=== PATIENT | female | born 1935 | race Caucasian/White ===

== ENCOUNTER 2021-07-24 19:23 | Inpatient (IN) | payer MEDICARE ==
[~2021-07-24] VITALS: Ht 152.4 cm; Wt 92.7 kg
--- NOTE | ~2021-07-24 | EMS ---
[address] [address] EMS Patient Care Report Name: MARIA D JONES Room #: 170-12 ADM IN M.R.#: [id number] Admission: 07/24/21 Attend Phys: Anuj Babb MD Discharge: Date of : 37 Report #: [id number] THIS REPORT FOR: //name// Report Transmitted: 07/25/2021 11:09 EMS Care Summary [place], [place]/[facility] Incident [id number] @ 07/24/2021 18:43 Incident Location [id number] [place], [place] [id number] Patient MARIA D JONES Female, 86 Years 1935 Patient Address [address] [place], [place] [id number] Patient History Diabetes,Fibromyalgia,Gastro-Esophageal Reflux Disease (GERD),Irritable Bowel Syndrome,Diverticulitis,Chronic Kidney Disease,Cardiomyopathy, Patient Allergies Penicillin allergy, Patient Medications Levothyroxine, Potassium, Aspirin, Docusate Sodium, Loratadine, Loperamide, Calcitriol, Paroxetine, Novolog, Rosuvastatin, Sulfamethoxazole, Omeprazole, Acyclovir, Ondansetron, Chief Complaint lower ext pain Disposition Transported No Lights/[place] Dispatch Reason Traumatic Injury Transported To [facility] Narrative pt fell a week ago and was eval at [facility]. she does not feel she got an adequate [address] [address] EMS Patient Care Report Name: MARIA D JONES Room #: 170- ADM IN [facility]#: [id number] Admission: 07/24/21 Attend Phys: Anuj Babb MD Discharge: Date of : 37 Report #: [id number] evaluation and now req eval at [facility]. pt states hip and lower ext pain is getting worse since fall. pt is found a&o, seated in recliner chair. she offers minimal assist in a stand and pivot transfer, due to pain. pt to cot, transport w/o incident. report to staff on arrival, rm 12 Initial Vitals @19:08P: 87,R: 20,BP: 116/64,Pain: 8/10,GCS: 15,SpO2: 98,Revised Trauma: 12, Assessments @18:57MENTAL:No Abnormalities,SKIN:No Abnormalities,HEENT:Head/Face: No Abnormalities,LUNG SOUNDS:General: No Abnormalities,ABDOMEN:General: No Abnormalities,PELVIS//GI:Pelvis Other,EXTREMITIES:Right Leg: Other,Left Leg: Other,PULSE:NEURO: Impression Extremity Pain Procedures @18:57 ALS Assessment Response: Unchanged @19:01 Stretcher Response: Unchanged Timeline 18:40,Call Received 18:40,Dispatch Notified 18:43,Dispatched 18:43,En Route 18:55,On Scene 18:57,At Patient 18:57,ALS Assessment,Response: Unchanged 19:01,Stretcher,Response: Unchanged 19:06,Depart Scene 19:08,BP: 116/64 M,PULSE: 87,RR: 20 R,SPO2: 98 Ox,ETCO2: ,BG: ,PAIN: 8,GCS: 15, 19:20,At Destination 19:33,Call Closed Disclaimer v1.1 Copyright 2020 [employer] This EMS Care Summary contains data elements from the applicable legal record (which may be displayed differently). It is designed to provide pertinent information for the following purposes: continuity of care, clinical quality, and state data reporting. The complete legal record is available to ED staff and administrators of the receiving hospital in [employer]s Patient Tracker. All data is provided "as is."
[2021-07-24 19:25] VITALS: BP 130/62
[2021-07-24 20:15] LABS: ABSOLUTE NEUTROPHILS 2.7 thou/uL (1.4-8.2); BASOPHILS 0.6 % (0.0-2.0); EOSINOPHILS 2.1 % (0.0-3.0); HEMATOCRIT 34.7 % (37.0-47.0); LYMPHOCYTES 17.7 % (24.0-44.0); MCH 35.8 pg (26.0-34.0); MCHC 34.4 g/dL (28.0-37.0); MCV 104.1 fL (80.0-100.0); MONOCYTES 11.3 % (1.0-8.0); PLATELET COUNT 138 thou/uL (150-400); POLYS 68.3 % (36.0-66.0); RBC 3.34 mil/uL (4.20-5.00); RDW 14.6 % (10.5-14.5); WBC 3.9 thou/uL (4.0-11.0)
[2021-07-24 20:21] LABS: CALCIUM 8.9 mg/dL (8.5-10.1); CREATININE 1.9 mg/dL (0.6-1.0); POTASSIUM 3.6 mmol/L (3.5-5.1)
--- NOTE | 2021-07-24 21:40 | NUR ---
GEL SPLINT, ISABELLE WRAP APPLIED TO LEFT ANKLE. X 2 MAX ASSIST TO SIT ON SIDE OF BED. WALKER IN USE FOR STABILITY. UNABLE TO STAND UP. MINIMAL ABILITY TO PUT WEIGHT ON LEFT LEG. MINIMAL. ABLE TO PUT WEIGHT ON RIGHT LEG BUT UNABLE TO MOVE RIGHT LEG FORWARD - STAFF PROVIDING TOTAL ASSIST TO MAINTAIN SAFETY AND MOBILITY. I NOTIFIED PROVIDER OF ABOVE.
[2021-07-24] MEDS ORDERED: NORCO5 PO (21:50)
[2021-07-24] MEDS ORDERED: NAPROSYN500 MG PO (21:50)
--- NOTE | 2021-07-24 22:00 | NUR ---
PATIENT SPOKE TO HER FAMILY VIA HER PERSONAL CELLPHONE AND UPDATED THEM OF HER CURRENT CONDITION.
[2021-07-25] MEDS ORDERED: SULFAMETHOXAZO1 EACH PO (05:49)
[2021-07-25] MEDS ORDERED: ROSUVASTATIN CA10 MG PO (05:49)
[2021-07-25] MEDS ORDERED: TRIAMTERENE-HC1 EAC2 PO (05:49)
[2021-07-25] MEDS ORDERED: ACETAMINOPHEN325 MG PO (05:50)
[2021-07-25] MEDS ORDERED: CHOLESTYRAMINE P4 GM PO (05:51)
[2021-07-25] MEDS ORDERED: DULCOLAX STOOL100 M1 PO (05:51)
[2021-07-25] MEDS ORDERED: UNISOM25 MG PO (05:51)
[2021-07-25] MEDS ORDERED: ONE-A-DAY WOMENS PO (06:37)
[2021-07-25] MEDS ORDERED: PAROXETINE HCL10 MG PO (06:38)
[2021-07-25] MEDS ORDERED: POTASSIUM CHLO10 ME1 PO (06:38)
[2021-07-25] MEDS ORDERED: PRIMIDONE50 MG PO (06:38)
[2021-07-25] MEDS ORDERED: REFRESH CLASSI1 EACH OPHTHALMIC (06:39)
[2021-07-25] MEDS ORDERED: REGULOID0.4 GM PO (06:40)
[2021-07-25] MEDS ORDERED: REVLIMID5 MG PO (06:40)
[2021-07-25] MEDS ORDERED: OMEPRAZOLE 20 M20 M1 PO (06:41)
[2021-07-25] MEDS ORDERED: NOVOLOG100 UNIT/1 SUBQ (06:42)
[2021-07-25] MEDS ORDERED: MAPAP500 MG PO (06:42)
[2021-07-25] MEDS ORDERED: LORATIDINE 10 M10 M1 PO (06:42)
[2021-07-25] MEDS ORDERED: FISH OIL 1,0001 EAC9 PO (06:43)
[2021-07-25] MEDS ORDERED: LEVOTHYROXINE88 MC1 PO (06:43)
[2021-07-25] MEDS ORDERED: CHILDREN'S ASPI81 M1 PO (06:44)
[2021-07-25] MEDS ORDERED: ACYCLOVIR 400400 MG PO (06:44)
[2021-07-25] MEDS ORDERED: BASAGLAR K100 UNIT/1 SUBQ (06:45)
[2021-07-25] MEDS ORDERED: CALCIUM 1,0001 EACH PO (06:46)
[2021-07-25] MEDS ORDERED: CALCITRIOL0.25 MCG PO (06:46)
--- NOTE | 2021-07-25 12:35 | NUR ---
ORTHO-DR PETERSON CALLED STATING PT SHOULD BE PLACED ON A WALKING BOOT TO L LEG FOR SPRAIN AND SHOULD F/U OP AT HIS CLINIC ([phone] CYNDI MARSHALL, STATES HE WILL ORDER PT EVAL FOR WALKING BOOT PLACEMENT.
[2021-07-25 17:54] VITALS: BP 102/74; BP 121/43
[2021-07-25 19:43] VITALS: BP 114/65
[2021-07-26 01:06] LABS: GLYCOHEMOGLOBIN (HGB A1C) 6.7 % (4.8-5.6)
--- NOTE | 2021-07-26 06:24 | NUR ---
PT ARRIVED ON THE UNIT IN A STABLE CONDITION AT 1800. PT WAS ORIENTED TO THE ROOM. PT HAS A SPRINT ON LEFT ANKLE. VS ARE WITHIN NORMAL RANGE. PAIN WAS MANAGED SCHEDULED PAIN MEDS. PT USES BEDPAN. PT IS ON RA. ADMISSION COMPLETED. PT IS ON RA. NO VISIBLE SIGN OF DISTRESS NOTED. WILL CONTINUE TO MONITOR.
[2021-07-26 07:54] VITALS: BP 131/62
--- NOTE | 2021-07-26 16:00 | NUR ---
PT ADMITTED RELATED TO RIGHT LEG WEAKNESS AND ANKLE STRAIN. CM REVIEWED CHART AND SPOKE WITH CARE TEAM. CM MET WITH PT AT BEDSIDE THIS DAY. PT APPEARED TO BE A&o X4. CM ROLE INTRODUCED. PT INDICATED SHE RESIDED AT [facility]. 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 PATIENT ALSO REPORTS NEEDING ASSIST WITH CARES SUCH BATHING AND BATHROOM NEEDS FOR ABOUT A WEEK. PATIENT HAS BEEN SEEN BY ORTHO. THEY ARE INDICATING SHE IS WBAT RIGHT LOWER EXT. IN BOOT. BOOT DELIVERED TO UNIT. PT SEEN BY THERAPY. THEY ARE INDICATING SHE WILL BENEFIT FROM POST ACUTE CARE STAY. CM PROVIDED PT WITH AET SNF LIST FOR REVIEW. PT REPORTS SHE WANTS HER DAUGHTER TO MAKE THE DECISION ON WHERE TO GO FOR SNF SERVICES. CM TO REACH OUT TO DAUGHTER MARCELINO. SM FOLLOWING REGARING DC PLANNING.
[2021-07-26 16:41] VITALS: BP 136/69
[2021-07-26 19:51] VITALS: BP 122/60
--- NOTE | 2021-07-27 03:42 | NUR ---
ASSUMED PT CARE THIS PM. PT IS ALERT AND ORIENTED X4. PT HAS A PORT TO THE RIGHT CHEST WHICH HAS NOT BEEN ACCESSED. PT HAS EXTERNAL FEMALE CATH IN PLACE. MEDS WERE GIVEN PER EMAR ORDERS. PT IS ON RA. NO VISIBLE SIGN OF DISTRESS WAS NOTED. FALL PRECAUTIONS IN PLACE. WILL CONTINUE TO MONITOR.
[2021-07-27 07:00] VITALS: BP 113/54
--- NOTE | 2021-07-27 16:26 | NUR ---
PT ACCEPTED FOR ADMISSION AT [facility] FOR SHORT TERM SKILLED REHAB. THEY HAVE SUBMITTED FOR INSURANCE AUTH. SHOULD AUTH BE RECEIVED OVER WEEKEND CALL ANGELICA IN ADMISSIONS AT TO FACILITATE DISCHARGE. PT AND KEITH TORRES.
[2021-07-27 19:42] VITALS: BP 129/89
--- NOTE | 2021-07-28 04:17 | NUR ---
assumed care approx 1900 evening 07/27. pt lying in bed with head of bed elevated at change of shift. pt c/o pain to back and generalized pain. po [place] given as ordered. purwick catheter in place draining dark yellow urine to canister. pt appears to be sleeping soundly off and on. bed alarm on and call light in reach. will continue to monitor.
[2021-07-28 07:38] VITALS: BP 127/72
[2021-07-28 07:53] LABS: FOLIC ACID 28.3 ng/mL (8.6-58.9)
--- NOTE | 2021-07-28 18:07 | NUR ---
Pt A & O x4 with forgettfulness note. Pt VS stable. Pt has boot to left foot noted. Pt is x 2 assist with ADLs and cares. Pt received medications as ordered. pt is room air. Pt is able to make needs known.
[2021-07-28 19:38] VITALS: BP 138/73
--- NOTE | 2021-07-29 03:54 | NUR ---
PT IS A/O X4 AND IS UP WITH ASSISTANCE X2. ROOM AIR. VSS. AFEBRILE. C/O PAIN. PRN PAIN MEDICATION GIVEN DIRECTED. FALL PRECAUTIONS IN PLACE, CALL LIGHT IS WITHIN REACH.
[2021-07-29 07:34] VITALS: BP 125/60
--- NOTE | 2021-07-29 09:55 | NUR ---
ASSUMED PT CARE THIS AM. PT HAS IV SITE ON RFA SALINE LOCKED. PT IS ACCUCHECK ACHS BUT GIVEN INSULION ONLY IF BG >200. PT HAS LIDOCAINE PATCH ON R HIP. PT IS ON ROOM AIR. CALLED CONSULT THIS AM. PT HAS CAM BOOTS ON L FOOT. PT HAS PUREWICK EXTERNAL CATH IN PLACE. PT ON THE BED, BED ON THE LOWESY POSITION, SIDE RAILS UP, CALL LIGHT WITHIN REACH. WILL CONTINUE TO MONITOR PT. FOLLOW POC.
[2021-07-29 17:16] VITALS: BP 140/81
[2021-07-29 20:23] VITALS: BP 129/69
--- NOTE | 2021-07-30 03:13 | NUR ---
ASSUMED CARE AT 1900, PT LAYING COMFORTALY IN BED, EPISODES OF CONFUSION NOTED, REPORTS NO NEED AT THIS TIME, APPEARS COMFORTABLE, CALL LIGHT, PERSONAL BELONGINGS WITHIN REACH, COMPLIANT TO TX, NO ADVERSE REACTION NOTED, POSSIBLE DC TO IGNITE, SLEPT THROUGH THE NIGHT, WILL CONTINUE TO MONITOR.
[2021-07-30 07:41] VITALS: BP 136/69
[2021-07-30 12:47] LABS: HEMATOCRIT 33.3 % (37.0-47.0); HEMOGLOBIN 11.2 gm/dL (12.0-15.0); MCH 34.9 pg (26.0-34.0); MCHC 33.8 g/dL (28.0-37.0); MCV 103.4 fL (80.0-100.0); RBC 3.22 mil/uL (4.20-5.00); RDW 14.3 % (10.5-14.5); WBC 5.9 thou/uL (4.0-11.0)
--- NOTE | 2021-07-30 13:44 | NUR ---
ASSUMED PT CARE THIS AM. PT A&OX4, ABLE TO MAKE NEEDS KNOWN. PATIENT HAS BEEN INCONTINENT THIS SHIFT, CHANGING NEEDED. CAM BOOT IS ON TO LEFT FOOT, PATIENT TOLERATING WELL. PATIENT IS ON ROOM AIR. IV REMAINS PATENT. FALL PRECAUTIONS ARE IN PLACE, CALL LIGHT WITHIN REACH.
--- NOTE | 2021-07-30 15:26 | NUR ---
CARE TEAM INDICATED THAT A MASS OF THE LUMBAR SPINE WAS FOUND. PT TO HAVE MRI THIS DAY. AWAITING AUTH FOR IGNITE [address]. CM FOLLOWING.
[2021-07-30 17:36] VITALS: BP 142/71
[2021-07-30 19:25] VITALS: BP 118/66
--- NOTE | 2021-07-31 04:32 | NUR ---
ASSUMED PT CARE THIS PM. PT IS ALERT AND ORIENTED X4. PT C/O OF PAIN WHICH WAS MANAGED BY PRN PAIN MEDS. PT HAS A BOOT CAM ON LEFT LE. PT HAS SWELIING ON FARA ANKLES. MEDS WERE GIVEN PER EMAR ORDERS. PT HAS MERCHANT IN PLACE. FALL PRECAUTIONS IN PLACE. WILL CONTINUE TO MONITOR.
[2021-07-31 07:33] VITALS: BP 113/68
--- NOTE | 2021-07-31 09:05 | NUR ---
Assess for length of stay. Admit with LE weakness, ankle sprain, hip and leg pain, spinal stenosis. New lumbar mass. Appetite has been fair to good, usually >75%. BG 285-318 on steroid and hx of diabetes. Will change diet order to carb control. BMI 40, extreme class III obesity. Likely discharge soon. Low nutrition risk
[2021-07-31 10:37] LABS: CALCIUM 6.8 mg/dL (8.5-10.1); CREATININE 1.4 mg/dL (0.6-1.0); POTASSIUM 4.3 mmol/L (3.5-5.1)
--- NOTE | 2021-07-31 13:47 | NUR ---
ASSUMED PT CARE THIS AM. VERIFY PA OF DR ARTIS IF PT WILL HAVE SURGERY THIS AM DUE TO PT HAS BEEN NPO SINCE MIDNIGHT. PER PA WILL HAVE SURGERY ON FRIDAY. PT HAD MRI AGAIN THIS AM. PT IS ACCUCHECK ACHS. PT HAS MERCHANT CATH IN PLACE. PT HAS CAM BOOT ON L FOOT. PT IS ON ROOM AIR. PHYSICAL THERAPY AND OCCUPATIONAL THERAPY WAS WORKING WITH PT TODAY. WILL CONTINUE TO MONITOR PT. FOLLOW POC.
--- NOTE | 2021-07-31 16:45 | NUR ---
NEURO SURGERY SAW PT AND HAD SCHEDULED TII-T12 DECOMPRESSION FOR FRIDAY. CARE TEAM INDICATED PT COULD DC TO SKILLED IN THE INTERIM. CM CALLED AND SPOKE WITH PT'S DTR SHE WAS AWARE AND AGREEABLE WITH DC TO SNF THEN SURGICAL INTERVENTION AN OP AT AN IN NETWORK FACILITY. [facility] PT WILL BE DC READY TOMORROW. CM FOLLOWING REGARIDNG DC PLANNING.
[2021-07-31 19:18] VITALS: BP 110/54
--- NOTE | 2021-08-01 06:02 | NUR ---
Pt. rested quietly during the night when checked on during frequent rounds. She c/o back pain and po pain med given (see emar) with some relief noted. Bed alarm is on.
[2021-08-01 06:03] LABS: HEMATOCRIT 32.1 % (37.0-47.0); HEMOGLOBIN 10.8 gm/dL (12.0-15.0); MCH 35.2 pg (26.0-34.0); MCHC 33.6 g/dL (28.0-37.0); MCV 104.8 fL (80.0-100.0); RBC 3.06 mil/uL (4.20-5.00); RDW 14.3 % (10.5-14.5)
[2021-08-01 06:33] LABS: ALBUMIN 2.2 g/dL (3.4-5.0); CALCIUM 6.6 mg/dL (8.5-10.1); CREATININE 1.4 mg/dL (0.6-1.0); PHOSPHORUS 1.9 mg/dL (2.5-4.9); POTASSIUM 4.1 mmol/L (3.5-5.1)
[2021-08-01 07:32] VITALS: BP 131/71
[2021-08-01] MEDS ORDERED: HUMALOG100 UNIT/1 SUBQ (09:30)
[2021-08-01] MEDS ORDERED: NYAMYC15 GM TOP (09:31)
[2021-08-01] MEDS ORDERED: MACROBID 100 M100 MG PO (09:35)
--- NOTE | 2021-08-01 14:14 | NUR ---
CARE TEAM HAD INITIALLY INDICATED [facility] DAY WITH OP NEUROSURGERY FOLLOW UP AFTER DC. CARE TEAM MID AFTERNOON TODAY INDICATED THAT THEY WANTED TO SEE IF PT COULD BE TRANSFERED TO [facility] FOR T11-T12 DECOMPRESSION UNDER DR. ARTIS. CM CONTACT [facility] TRANSFER [facility] AND INITIATED TRANSFER. CM FAXED CLINICAL AND REQUESTED THAT RADIOLOGY CLOUD IMAGES.
[2021-08-01 15:51] VITALS: BP 110/62
--- NOTE | 2021-08-01 16:44 | NUR ---
PT WAS ACCEPTED FOR TRANSFER TO [facility]. ACCEPTING HOSPITALIST DR. HOFFMAN. PT TO GO TO RM [id number]. [facility] ARRANGED FOR PULLER OVER FOR [phone]. TRANSFER FORM COMPLETED AND GIVEN TO NURSE. NURSE GIVEN NUMBER FOR REPORT. MAGDALENA . CM NOTIFIED PT AND HER DTR AND KEITH. CHART COPY MADE. NO OTHER CM INTERVENTION INDICATED. CASE CLOSED.
--- NOTE | 2021-08-01 18:49 | NUR ---
PT ALERT AND ORIENTED TIMES FOUR. VSS, MAYUR TO [place]. PT C/O PAIN PRN PAIN MEDICATIONS CONTROLLING PAIN WELL. PT TOLEATES MEDS AND MEALS. WILL CONTINUE TO MONITOR.
[2021-08-01 20:50] VITALS: BP 102/50
--- NOTE | 2021-08-01 21:45 | NUR ---
patient left the unit at around 2100 accompanied by 2 paramedics. patient aox4 made needs known. patient denied pain or discomfort. vital signs taken and charted in [facility]. report given to paramedics
== END 2021-08-01 21:00 | disposition short-term general hospital (02) | DRG 562 ==
LOC: ER 19:23 → EROBS 22:08 → 4W 22:08 → EROBS 22:09 → 4W 07-25 18:12
PROVIDERS: Emergency Medicine; Hospitalist; Nurse Practitioner Family; ADMIT Hospitalist; ATTEND Hospitalist
PROC: 2W3TX1Z Immobilization of Left Foot using Splint (ICD-10-PCS; principal; 2021-07-24)
DX: S93.402A Sprain of unspecified ligament of left ankle, initial encounter (principal); N17.0 Acute kidney failure with tubular necrosis; E43 Unspecified severe protein-calorie malnutrition; I42.9 Cardiomyopathy, unspecified; C90.00 Multiple myeloma not having achieved remission; S73.101A Unspecified sprain of right hip, initial encounter; D50.9 Iron deficiency anemia, unspecified; N18.30 Chronic kidney disease, stage 3 unspecified; D53.1 Other megaloblastic anemias, not elsewhere classified; M48.04 Spinal stenosis, thoracic region; K21.9 Gastro-esophageal reflux disease without esophagitis; F41.9 Anxiety disorder, unspecified; F32.9 Major depressive disorder, single episode, unspecified; E03.9 Hypothyroidism, unspecified; E78.5 Hyperlipidemia, unspecified; E66.9 Obesity, unspecified; M79.7 Fibromyalgia; E11.42 Type 2 diabetes mellitus with diabetic polyneuropathy; R53.81 Other malaise; E55.9 Vitamin D deficiency, unspecified; G47.00 Insomnia, unspecified; I12.9 Hypertensive chronic kidney disease with stage 1 through stage 4 chronic kidney disease, or unspecified chronic kidney disease; D75.89 Other specified diseases of blood and blood-forming organs; E11.22 Type 2 diabetes mellitus with diabetic chronic kidney disease; N31.9 Neuromuscular dysfunction of bladder, unspecified; R33.9 Retention of urine, unspecified; Z20.822 Contact with and (suspected) exposure to COVID-19; Z88.0 Allergy status to penicillin; Z68.39 Body mass index [BMI] 39.0-39.9, adult; Z82.49 Family history of ischemic heart disease and other diseases of the circulatory system; Z79.82 Long term (current) use of aspirin; Z79.899 Other long term (current) drug therapy; W18.39XA Other fall on same level, initial encounter; Y93.89 Activity, other specified; Y92.89 Other specified places as the place of occurrence of the external cause; Y99.8 Other external cause status
CPT/HCPCS: 10040